=== PATIENT | female | born 1945 | race Caucasian/White ===

== ENCOUNTER 2016-08-28 16:03 | Emergency (ER) | payer MEDICARE, OTHER ==
--- NOTE | 2016-08-28 17:26 | ED.PDOC ---
History of Present Illness - General Chief Complaint: General Stated Complaint: cough, fever, diarrhea Time Seen by Provider: 08/28/16 17:25 Source: patient, RN notes reviewed, Vital Signs reviewed Exam Limitations: no limitations Additional Information: Exposed to sick kids with same symptoms-grandkids - History of Present Illness Timing/Duration: other - 4 days ago Severity: moderate Improving Factors: nothing Worsening Factors: nothing Associated Symptoms: weakness Allergies/Adverse Reactions: Allergies Codeine Allergy (Verified 08/28/16 16:34) Morphine Allergy (Verified 08/28/16 16:34) Penicillins Allergy (Verified 08/28/16 16:34) Pentazocine [From Talwin Compound] Allergy (Verified 08/28/16 16:34) Sulfa Drugs Allergy (Verified 08/28/16 16:34) Vitamin A Allergy (Verified 08/28/16 16:34) Home Medications: Ambulatory Orders Albuterol Inhaler [Ventolin Hfa Inhaler] 1 puff INH PRN PRN 08/22/14 Aspirin [Baby Aspirin] 81 mg PO QD 08/22/14 Nebivolol HCl [Bystolic] 5 mg PO BEDTIME 08/22/14 Tiotropium [place] Monohydrate [Spiriva Handihaler] 18 mcg IN BID 08/22/14 Azithromycin [Zithromax Z-Duarte] 1 ea PO DAILY #1 pack 08/28/16 Carisoprodol [Soma] 350 mg PO TID 08/28/16 Chlorpheniramine Maleate [Chlor-Trimeton] 4 mg PO BID #14 tab 08/28/16 Dextromet/Guaifenesin 600/30 T [Mucinex Dm 600/30MG] 1 tab PO BID #20 tab Fluticasone/Salmeterol 250/50 [Advair Diskus] 1 puff INH BID 08/28/16 predniSONE [Prednisone] 10 mg PO ACHS #10 tab 08/28/16 Review of Systems - Review of Systems Constitutional: States: weakness - from coughing EENTM: States: no symptoms reported Respiratory: States: see HPI, cough Cardiology: States: no symptoms reported Gastrointestinal/Abdominal: States: see HPI, diarrhea Genitourinary: States: no symptoms reported Musculoskeletal: States: no symptoms reported Skin: States: no symptoms reported Neurological: States: no symptoms reported Endocrine: States: no symptoms reported Past Medical History (General) - Patient Medical History Hx Seizures: No Hx Stroke: Yes - cva right leg weakness Hx Dementia: No Hx Asthma: Yes Hx of COPD: Yes Hx Cardiac Disorders: Yes - stent Hx Congestive Heart Failure: No Hx Pacemaker: No Hx Hypertension: Yes Hx Thyroid Disease: No Hx Diabetes: No Hx Gastroesophageal Reflux: No Hx Renal Disease: No Hx Cancer: Yes - right hip, skin cancer Hx of HIV: No Hx Hepatitis C: No Hx MRSA: No Surgical History: appendectomy, other - hysterectomy,neck back shoulder,egd, colonoscopy - Vaccination History Hx Tetanus, Diphtheria Vaccination: No Hx Influenza Vaccination: Yes Hx Pneumococcal Vaccination: Yes - Social History Hx Tobacco Use: Yes Hx Chewing Tobacco Use: No Hx Alcohol Use: No Hx Substance Use: No Hx Substance Use Treatment: No Hx Depression: No Hx Physical Abuse: No Hx Emotional Abuse: No Hx Suspected Abuse: No - Activities of Daily Living Patient Lives Alone: - lives with daughter - Female History Patient is a Female of Child Bearing Age (10 -59 yrs old): No Patient : No Family Medical History - Family History Mother Family History: No Known Living Status: Hx Family Stroke: Yes Hx Cardiac Disease: Yes Hx Family Diabetes: Yes Hx Family Cancer: Yes - brain Physical Exam - Physical Exam General Appearance: Alert, Anxious, No apparent distress Eye Exam: bilateral normal Ears, Nose, Throat: hearing grossly normal, normal ENT inspection, normal pharynx Neck: non-tender, full range of motion, supple, normal inspection Respiratory: chest non-tender, no respiratory distress, no accessory muscle use , rhonchi Cardiovascular/Chest: normal peripheral pulses, regular rate, rhythm, no edema, no gallop, no JVD, no murmur Peripheral Pulses: radial,right: 2+, radial,left: 2+ Gastrointestinal/Abdominal: non tender, soft, no organomegaly, no pulsatile mass Back Exam: normal inspection, no CVA tenderness, no vertebral tenderness Extremity: normal range of motion, non-tender Neurologic: no motor/sensory deficits, alert Skin Exam: normal color, warm/dry Lymphatic: no adenopathy Progress - Results/Orders Results/Orders: 08/28/16 16:47 STREP A SCREEN CULTURE Stat 08/28/16 17:28 SVN/Updraft Therapy .ONCE Laboratory Results WBC 4.7 K/mm3 (4.8-10.8) L 08/28/16 17:55 RBC 4.65 M/mm3 (4.20-5.40) 08/28/16 17:55 Hgb 15.5 gm/dL (12.0-16.0) 08/28/16 17:55 Hct 45.5 % (36.0-47.0) 08/28/16 17:55 MCV 97.9 fl (81.0-99.0) 08/28/16 17:55 MCH 33.2 pg (27.0-31.0) H 08/28/16 17:55 MCHC 34.0 g/dL (33.0-37.0) 08/28/16 17:55 RDW 13.8 % (11.5-14.5) 08/28/16 17:55 Plt Count 198 K/mm3 (130-400) 08/28/16 17:55 MPV 9.0 fl (7.40-10.4) 08/28/16 17:55 Absolute Neuts (auto) 2.70 K/uL (1.8-6.8) 08/28/16 17:55 Absolute Lymphs (auto) 1.20 K/uL (1.0-3.4) 08/28/16 17:55 Absolute Monos (auto) 0.60 K/uL (0.2-0.8) 08/28/16 17:55 Absolute Eos (auto) 0.10 K/uL (0.0-0.4) 08/28/16 17:55 Absolute Basos (auto) 0.00 K/uL (0.0-0.1) 08/28/16 17:55 Neutrophils % 57.7 % (42.0-78.0) 08/28/16 17:55 Lymphocytes % 26.1 % (20.0-50.0) 08/28/16 17:55 Monocytes % 12.6 % (2.0-9.0) H 08/28/16 17:55 Eosinophils % 2.7 % (1.0-5.0) 08/28/16 17:55 Basophils % 0.9 % (0.0-2.0) 08/28/16 17:55 Sodium 137 mmol/L (135-145) 08/28/16 17:55 Potassium 4.7 mmol/L (3.6-5.0) 08/28/16 17:55 Chloride 103 mmol/L (101-111) 08/28/16 17:55 Carbon Dioxide 25 mmol/L (21-31) 08/28/16 17:55 Anion Gap 13.7 (12-18) 08/28/16 17:55 BUN 11 mg/dL (7-18) 08/28/16 17:55 Creatinine 0.59 mg/dL (0.6-1.3) L 08/28/16 17:55 BUN/Creatinine Ratio 18.6 (10-20) 08/28/16 17:55 Random Glucose 94 mg/dL (70-105) 08/28/16 17:55 Serum Osmolality 273.0 mOsm/L (275-295) L 08/28/16 17:55 Calcium 9.1 mg/dL (8.4-10.2) 08/28/16 17:55 Total Bilirubin 0.4 mg/dL (0.2-1.0) 08/28/16 17:55 AST 25 IU/L (10-42) 08/28/16 17:55 ALT 27 IU/L (10-60) 08/28/16 17:55 Alkaline Phosphatase 95 IU/L (42-121) 08/28/16 17:55 Serum Total Protein 7.7 gm/dL (6.4-8.2) 08/28/16 17:55 Albumin 4.1 g/dl (3.2-5.5) 08/28/16 17:55 Globulin 3.6 gm/dL (2.3-3.5) H 08/28/16 17:55 Albumin/Globulin Ratio 1.1 (1.1-1.9) 08/28/16 17:55 Group A Strep Rapid Negative (NEGATIVE) 08/28/16 16:47 - EKG/XRAY/CT XRAY: chest - no acute abnormality noted Departure - Departure Clinical Impression: Asthmatic bronchitis with acute exacerbation, Viral diarrhea Time of Disposition: 18:51 Disposition: Discharge to Home or Self Care Condition: Good Departure Forms: ED Discharge - Pt. Copy, Patient Portal Self Enrollment Instructions: DI for Chronic Bronchitis, Probiotics May Decrease Intensity and Duration of Diarrhea Due to Infection Prescriptions: Chlorpheniramine Maleate [Chlor-Trimeton] 4 mg PO BID #14 tab Dextromet/Guaifenesin 600/30 T [Mucinex Dm 600/30MG] 1 tab PO BID #20 tab predniSONE [Prednisone] 10 mg PO ACHS #10 tab Azithromycin [Zithromax Z-Duarte] 1 ea PO DAILY #1 pack Home Medications: Ambulatory Orders Albuterol Inhaler [Ventolin Hfa Inhaler] 1 puff INH PRN PRN 08/22/14 Aspirin [Baby Aspirin] 81 mg PO QD 08/22/14 Nebivolol HCl [Bystolic] 5 mg PO BEDTIME 08/22/14 Tiotropium [place] Monohydrate [Spiriva Handihaler] 18 mcg IN BID 08/22/14 Azithromycin [Zithromax Z-Duarte] 1 ea PO DAILY #1 pack 08/28/16 Carisoprodol [Soma] 350 mg PO TID 08/28/16 Chlorpheniramine Maleate [Chlor-Trimeton] 4 mg PO BID #14 tab 08/28/16 Dextromet/Guaifenesin 600/30 T [Mucinex Dm 600/30MG] 1 tab PO BID #20 tab Fluticasone/Salmeterol 250/50 [Advair Diskus] 1 puff INH BID 08/28/16 predniSONE [Prednisone] 10 mg PO ACHS #10 tab 08/28/16 Additional Instructions: AVOID GREASY,SPICY,DAIRY FOODS UNTIL DIARRHEA BETTER,RETURN TO EMERGENCY ROOM NEEDED,CONTINUE WITH CURRENT MEDICATIONS
[2016-08-28] MEDS ORDERED: IPRATROPIUM/ALBUTEROL 3 ML VIAL NEB ONE (17:28)
[2016-08-28] MEDS ORDERED: LACTATED RINGERS 1,000 ML IVS ONE (17:29)
[2016-08-28] MEDS ORDERED: methylPREDNISolone SODIUM SUC 125 MG/2 ML VIAL IV ONE (17:29)
--- NOTE | 2016-08-28 17:34 | RAD ---
EXAM DESCRIPTION: XR CHEST 2 VIEWS CLINICAL HISTORY: SOB cough chest congestion COMPARISON: 22 August 2014. TECHNIQUE: PA/lateral FINDINGS: Orthopedic anchors are observed in the right shoulder. The lungs are free of acute infiltrate. A calcified granuloma is observed at the left lung base. The heart is within the range of normal. No pleural fluid is seen. IMPRESSION: I see no acute cardiopulmonary pathology. Electronically signed by: Vitaly Wiley MD 08/28/2016 17:31
[2016-08-28 19:10] VITALS: BP 148/84; TEMP 98.8; O2SAT 95
== END 2016-08-28 19:10 | disposition home or self-care (01) ==
LOC: ER 16:03
DX: J45.901 Unspecified asthma with (acute) exacerbation (principal); A08.4 Viral intestinal infection, unspecified; Z79.82 Long term (current) use of aspirin; Z79.899 Other long term (current) drug therapy; J44.9 Chronic obstructive pulmonary disease, unspecified; I10 Essential (primary) hypertension; Z98.61 Coronary angioplasty status; I69.951 Hemiplegia and hemiparesis following unspecified cerebrovascular disease affecting right dominant side
CPT/HCPCS: 36415; 71020; 80053; 85025; 87070; 87804; 87880; 94640; J2930; J7120; J7620

== ENCOUNTER 2016-11-21 11:27 | Emergency (ER) | payer MEDICARE ==
[2016-11-21 11:45] VITALS: TEMP 97.4
[2016-11-21] MEDS ORDERED: IPRATROPIUM/ALBUTEROL 3 ML VIAL NEB ONE (11:45)
[2016-11-21] MEDS ORDERED: methylPREDNISolone SODIUM SUC 125 MG/2 ML VIAL IM ONE (11:45)
--- NOTE | 2016-11-21 11:50 | ED.PDOC ---
History of Present Illness - General Chief Complaint: Respiratory Problem Stated Complaint: cough,shortness of breath Time Seen by Provider: 11/21/16 11:39 Source: patient, RN notes reviewed, Vital Signs reviewed Exam Limitations: no limitations - History of Present Illness Comments: Patient comes in with a several day history of cough and SOB. Similar to prior episodes. Says she needs a breathing treatment and steroids. + chills. + chest pain. Diarrhea started this morning. Timing/Duration: week Cough Quality/Degree: moderate, dry cough Possible Cause: frequent episodes Improving Factors: nothing Worsening Factors: nothing Associated Symptoms: chest pain/soreness, cough, fever/chills, headache, shortness of breath, wheezing Allergies/Adverse Reactions: Allergies Codeine Allergy (Verified 08/28/16 16:34) Morphine Allergy (Verified 08/28/16 16:34) Penicillins Allergy (Verified 08/28/16 16:34) Pentazocine [From Talwin Compound] Allergy (Verified 08/28/16 16:34) Sulfa Drugs Allergy (Verified 08/28/16 16:34) Vitamin A Allergy (Verified 08/28/16 16:34) Home Medications: Ambulatory Orders Albuterol Inhaler [Ventolin Hfa Inhaler] 1 puff INH PRN PRN 08/22/14 Aspirin [Baby Aspirin] 325 mg PO QD 08/22/14 Nebivolol HCl [Bystolic] 5 mg PO BEDTIME 08/22/14 Tiotropium [place] Monohydrate [Spiriva Handihaler] 18 mcg IN BID 08/22/14 Carisoprodol [Soma] 350 mg PO TID 08/28/16 Fluticasone/Salmeterol 250/50 [Advair Diskus] 1 puff INH BID 08/28/16 Albuterol Inhaler [Ventolin Hfa Inhaler] 2 puff INH Q4HR PRN #1 inh 11/21/16 Azithromycin [Zithromax Z-Duarte] 1 ea PO DAILY #1 pack 11/21/16 Prednisone 10 mg PO DAILY #30 tbls 11/21/16 Review of Systems - Review of Systems Constitutional: States: chills, malaise. Denies: fever EENTM: States: no symptoms reported Respiratory: States: cough, short of breath, wheezing. Denies: orthopnea, stridor Cardiology: States: no symptoms reported Gastrointestinal/Abdominal: States: diarrhea. Denies: abdominal pain, nausea, vomiting Musculoskeletal: States: no symptoms reported Skin: States: no symptoms reported Neurological: States: headache Past Medical History (General) - Patient Medical History Hx Seizures: No Hx Stroke: Yes - cva right leg weakness Hx Dementia: No Hx Asthma: Yes Hx of COPD: Yes Hx Cardiac Disorders: Yes - stent Hx Congestive Heart Failure: No Hx Pacemaker: No Hx Hypertension: Yes Hx Thyroid Disease: No Hx Diabetes: No Hx Gastroesophageal Reflux: No Hx Renal Disease: No Hx Cancer: Yes - right hip, skin cancer Hx of HIV: No Hx Hepatitis C: No Hx MRSA: No Surgical History: Hysterectomy - Vaccination History Hx Tetanus, Diphtheria Vaccination: No Hx Influenza Vaccination: Yes Hx Pneumococcal Vaccination: Yes - Social History Hx Tobacco Use: Yes Hx Chewing Tobacco Use: No Hx Alcohol Use: No Hx Substance Use: No Hx Substance Use Treatment: No Hx Depression: No Hx Physical Abuse: No Hx Emotional Abuse: No Hx Suspected Abuse: No - Female History Patient : No Family Medical History - Family History Mother Family History: No Known Living Status: Hx Family Stroke: Yes Hx Cardiac Disease: Yes Hx Family Diabetes: Yes Hx Family Cancer: Yes - brain Physical Exam - Physical Exam General Appearance: Alert, Comfortable, No apparent distress, Well Developed, Well Groomed, Well Hydrated, Well Nourished ENT Exam: normal ENT inspection, pharynx normal Neck: non-tender, full range of motion, supple, normal inspection, trachea midline Respiratory: wheezing, expiration, inspiration Cardiovascular/Chest: regular rate, rhythm, no gallop, no JVD, no murmur Gastrointestinal/Abdominal: normal bowel sounds, non tender, soft, no organomegaly, no pulsatile mass Neurologic: no motor/sensory deficits, alert, normal mood/affect, oriented x 3 Skin Exam: normal color, warm/dry Progress - Progress Progress: 11/21/16 12:30 Patient is feeling better after neb treatment but on exam she still is wheezing throughout R>L 11/21/16 12:30 Will give another Neb treatment. 11/21/16 13:02 Improved air movement after 2nd neb treatment with Albuterol. No wheezing. Will d/c home with steroids, Albuterol inhaler and Z-pack - EKG/XRAY/CT XRAY: chest - No acute process Departure - Departure Clinical Impression: Asthmatic bronchitis with acute exacerbation Time of Disposition: 13:02 Disposition: Discharge to Home or Self Care Condition: Good Departure Forms: ED Discharge - Pt. Copy, Patient Portal Self Enrollment Instructions: DI for Asthma -- Adult, DI for Acute Bronchitis Diet: resume usual diet Activity: increase activity as tolerated Prescriptions: Albuterol Inhaler [Ventolin Hfa Inhaler] 2 puff INH Q4HR PRN #1 inh PRN Reason: Shortness Of Breath Prednisone 10 mg PO DAILY #30 tbls Azithromycin [Zithromax Z-Duarte] 1 ea PO DAILY #1 pack Home Medications: Ambulatory Orders Albuterol Inhaler [Ventolin Hfa Inhaler] 1 puff INH PRN PRN 08/22/14 Aspirin [Baby Aspirin] 325 mg PO QD 08/22/14 Nebivolol HCl [Bystolic] 5 mg PO BEDTIME 08/22/14 Tiotropium [place] Monohydrate [Spiriva Handihaler] 18 mcg IN BID 08/22/14 Carisoprodol [Soma] 350 mg PO TID 08/28/16 Fluticasone/Salmeterol 250/50 [Advair Diskus] 1 puff INH BID 08/28/16 Albuterol Inhaler [Ventolin Hfa Inhaler] 2 puff INH Q4HR PRN #1 inh 11/21/16 Azithromycin [Zithromax Z-Duarte] 1 ea PO DAILY #1 pack 11/21/16 Prednisone 10 mg PO DAILY #30 tbls 11/21/16 Additional Instructions: Follow up with your doctor in 2-3 days
--- NOTE | 2016-11-21 12:27 | RAD ---
EXAM DESCRIPTION: Chest,2 Views CLINICAL HISTORY: cough, chills, SOB COMPARISON: August 28, 2016 FINDINGS: Two-view chest x-ray shows cardiomediastinal silhouette and pulmonary vasculature to be within normal limits. The lungs are normally aerated and clear. There is a 6 mm calcified pulmonary nodule in the left lower lobe. Stable from previous. Costophrenic angles are sharp. Postsurgical changes to the right shoulder are seen. Mild spondylitic changes of the spine are noted. IMPRESSION: No radiographic evidence of acute cardiopulmonary disease. Electronically signed by: Hermann Bill MD 11/21/2016 12:25 PM CDT
[2016-11-21 12:31] VITALS: BP 153/77
[2016-11-21] MEDS ORDERED: ALBUTEROL SULFATE 2.5 MG/3 ML VIAL NEB ONE (12:31)
[2016-11-21 12:40] VITALS: O2SAT 96
== END 2016-11-21 13:15 | disposition home or self-care (01) ==
LOC: ER 11:27
DX: J45.901 Unspecified asthma with (acute) exacerbation (principal); I69.951 Hemiplegia and hemiparesis following unspecified cerebrovascular disease affecting right dominant side; I10 Essential (primary) hypertension; J44.9 Chronic obstructive pulmonary disease, unspecified; Z98.61 Coronary angioplasty status; Z79.82 Long term (current) use of aspirin; Z79.899 Other long term (current) drug therapy; Z88.6 Allergy status to analgesic agent; Z88.0 Allergy status to penicillin; Z88.2 Allergy status to sulfonamides; Z87.891 Personal history of nicotine dependence

== ENCOUNTER 2017-07-28 13:04 | Emergency (ER) | payer MEDICARE ==
--- NOTE | 2017-07-28 13:35 | ED.PDOC ---
History of Present Illness - General Chief Complaint: Chest Pain/OH Stated Complaint: chest pain Time Seen by Provider: 07/28/17 13:12 Source: patient Exam Limitations: no limitations - History of Present Illness Initial Comments: PT PRESENTS TO THE ED WITH COMPLAINT OF CHEST PAIN, SOB, AND NAUSEA SINCE THIS MORNING AT 8AM. PT HAS HISTORY OF CAD WITH STENT. PT REPORTS TAKING ASA AND 2NTG AT HOME WITH ONLY PARTIAL RELIEF. PT HAS HAD SYMPTOMS OF COUGH AND CONGESTION X 4 DAYS. PT RATES PAIN AT 5/10 CURRENTLY BUT STATES THAT IT WAS 12/ 10 AT ONSET. Timing/Duration: 4-6 hours Severity: severe Location: substernal Activities at Onset: none Prior Chest Pain/Cardiac Workup: angina, cardiac cath, heart attack Improving Factors: medication Worsening Factors: nothing Nitro Today/Relief: 0.4 mg x 2 Aspirin Treatment Today: 81 mg x 2 Associated Symptoms: cough, nausea/vomiting, shortness of breath Allergies/Adverse Reactions: Allergies Codeine Allergy (Verified 07/28/17 13:21) Morphine Allergy (Verified 07/28/17 13:21) Penicillins Allergy (Verified 07/28/17 13:21) Pentazocine [From [place]win Compound] Allergy (Verified 07/28/17 13:21) Sulfa Drugs Allergy (Verified 07/28/17 13:21) Vitamin A Allergy (Verified 07/28/17 13:21) Home Medications: Ambulatory Orders Albuterol Inhaler [Ventolin Hfa Inhaler] 1 puff INH PRN PRN 08/22/14 Nebivolol HCl [Bystolic] 5 mg PO BEDTIME 08/22/14 Tiotropium [place] Monohydrate [Spiriva Handihaler] 18 mcg IN BID 08/22/14 Carisoprodol [Soma] 350 mg PO QID 08/28/16 Fluticasone/Salmeterol 250/50 [Advair Diskus] 1 puff INH BID 08/28/16 Albuterol Inhaler [Ventolin Hfa Inhaler] 2 puff INH Q4HR PRN #1 inh 11/21/16 Aspirin [(None)] 325 mg PO DAILY 07/28/17 Review of Systems - Review of Systems Constitutional: Denies: chills, fever EENTM: States: nose congestion. Denies: throat pain Respiratory: States: cough, short of breath Cardiology: States: chest pain. Denies: palpitations, syncope Gastrointestinal/Abdominal: States: nausea. Denies: abdominal pain, diarrhea, vomiting Genitourinary: Denies: dysuria, frequency Musculoskeletal: Denies: joint pain, joint swelling Skin: Denies: dryness, lesions Neurological: Denies: headache, numbness Endocrine: States: no symptoms reported Hematologic/Lymphatic: States: no symptoms reported Past Medical History (General) - Patient Medical History Hx Seizures: No Hx Stroke: Yes - cva right leg weakness Hx Dementia: No Hx Asthma: Yes Hx of COPD: Yes Hx Cardiac Disorders: Yes - stent Hx Congestive Heart Failure: No Hx Pacemaker: No Hx Hypertension: Yes Hx Thyroid Disease: No Hx Diabetes: No Hx Gastroesophageal Reflux: No Hx Renal Disease: No Hx Cancer: Yes - right hip, skin cancer Hx of HIV: No Hx Hepatitis C: No Hx MRSA: No Surgical History: appendectomy, Hysterectomy, other - Vaccination History Hx Tetanus, Diphtheria Vaccination: No Hx Influenza Vaccination: Yes Hx Pneumococcal Vaccination: Yes - Social History Hx Tobacco Use: Yes Hx Chewing Tobacco Use: No Hx Alcohol Use: No Hx Substance Use: No Hx Substance Use Treatment: No Hx Depression: No Hx Physical Abuse: No Hx Emotional Abuse: No Hx Suspected Abuse: No - Female History Patient is a Female of Child Bearing Age (10 -59 yrs old): No Patient : No Family Medical History - Family History Mother Family History: No Known Living Status: Hx Family Stroke: Yes Hx Cardiac Disease: Yes Hx Family Diabetes: Yes Hx Family Cancer: Yes - brain Physical Exam - Physical Exam General Appearance: Alert, Comfortable, No apparent distress, Well Developed, Well Groomed, Well Hydrated Eyes, Ears, Nose, Throat Exam: normal ENT inspection Neck: supple, normal inspection Respiratory: no respiratory distress, no accessory muscle use, wheezing Cardiovascular/Chest: regular rate, rhythm, no murmur Gastrointestinal/Abdominal: non tender, soft Extremity: non-tender, normal inspection, no pedal edema Neurologic: alert, normal mood/affect, oriented x 3 Skin Exam: normal color, warm/dry Progress - Progress Progress: 07/28/17 14:10 PT REPORTS ONLY MINIMAL RELIEF AFTER 1SL NTG. 07/28/17 14:34 PT REQUESTING DILAUDID FOR PAIN. LABS AND DIAGNOSTICS DISCUSSED WITH PATIENT. PT AGREES WITH PLAN TO TRANSFER TO [place] FOR CARDIOLOGY CONSULT. IV NTG AND IV HEPARIN ORDERED. - Results/Orders Results/Orders: 07/28/17 13:31 IV Care:Saline Lock per Protoc QSHIFT Telemetry .ONCE Sodium Chloride 0.9% (Flush) [Saline Flush Syringe] 10 ml IV PRN PRN EKG Stat Pulse Ox Stat 07/28/17 13:32 EKG Assessment ONCE Pulse Oximetry Assessment DAILY 07/28/17 13:37 URINE CULTURE W/COLONY COUNT Stat 07/28/17 14:45 Heparin Premix [Heparin/D5w 25,000U/500ML] 25,000 units Premix Bag 1 bag IVS PRN 07/28/17 15:00 Nitroglycerin/D5w IV 50,000 mcg Premix Bottle 1 bottle IVS PRN Laboratory Results - last 24 hr 07/28/17 07/28/17 13:37 13:37 WBC 7.7 RBC 4.66 Hgb 15.5 Hct 45.2 MCV 97.2 MCH 33.2 H MCHC 34.2 RDW 13.9 Plt Count 229 MPV 8.6 Absolute Neuts (auto) 5.30 Absolute Lymphs (auto) 1.80 Absolute Monos (auto) 0.50 Absolute Eos (auto) 0.10 Absolute Basos (auto) 0.10 Neutrophils % 68.7 Lymphocytes % 23.3 Monocytes % 6.3 Eosinophils % 0.8 L Basophils % 0.9 PT 11.5 INR 1.020 PTT (SP) 31.4 Sodium 137 Potassium 4.1 Chloride 102 Carbon Dioxide 28 Anion Gap 11.1 L BUN 11 Creatinine 0.95 BUN/Creatinine Ratio 11.6 Random Glucose 121 H Serum Osmolality 274.5 L Calcium 9.0 Magnesium 2.0 Total Bilirubin 0.3 Direct Bilirubin < 0.1 Indirect Bilirubin 0.2 AST 26 ALT 31 Alkaline Phosphatase 82 Creatine Kinase 129 CK-MB (CK-2) 5.4 H* CK-MB (CK-2) % 4.19 Troponin I 0.28 H* B-Natriuretic Peptide 9.6 Serum Total Protein 7.5 Albumin 3.9 Urine Color Yellow Urine Appearance Clear Urine pH 7.0 Ur Specific [place] 1.015 Urine Protein Negative Urine Glucose (UA) Negative Urine Ketones Negative Urine Blood Trace-lysed H Urine Nitrite Negative Urine Bilirubin Negative Urine Urobilinogen 0.2 Ur Leukocyte Esterase Small H Urine RBC 1-3 Urine WBC 5-10 H Ur Epithelial Cells 0-1 Urine Bacteria Rare - EKG/XRAY/CT EKG: Sinus - @84BPM, NL INTERVALS, NL AXIS, ST depression - MINIMAL IN INFERIOR LEADS, NO OLD EKG FOR COMPARISON XRAY: chest - NO ACUTE FINDINGS - Consult/PCP Time Called: 14:45 Consult/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 Copy, Patient Portal Self Enrollment Instructions: DI for Chest Pain Home Medications: Ambulatory Orders Albuterol Inhaler [Ventolin Hfa Inhaler] 1 puff INH PRN PRN 08/22/14 Nebivolol HCl [Bystolic] 5 mg PO BEDTIME 08/22/14 Tiotropium [place] Monohydrate [Spiriva Handihaler] 18 mcg IN BID 08/22/14 Carisoprodol [Soma] 350 mg PO QID 08/28/16 Fluticasone/Salmeterol 250/50 [Advair Diskus] 1 puff INH BID 08/28/16 Albuterol Inhaler [Ventolin Hfa Inhaler] 2 puff INH Q4HR PRN #1 inh 11/21/16 Aspirin [(None)] 325 mg PO DAILY 07/28/17 Critical Care Note - Critical Care Note Total Time (mins): 43 Comments: CRITICAL EVENT: CHEST PAIN, H/O CAD CRITICAL FINDING: TROP, 0.28 CRITICAL ACTION: INITIATION OF IV NTG DRIP, IV HEPARIN, EMERGENT CARDIOLOGY CONSULT, CONSULTATION FOR TRANSFER. Transfer to Outside Facility - Transfer Information Accepting Provider:: DR. FERNANDEZ Accepting Facility: [facility] Reason for Transfer: required specialist not available - HAIR OR BEAUTY SALON ASSISTANT
[2017-07-28] MEDS: NITROGLYCERIN 0.4 MG 25 EA TAB SL ONE (13:42)
[2017-07-28] MEDS: SODIUM CHLORIDE 0.9% (FLUSH) 10 ML SYG IV PRN (13:42)
[2017-07-28] MEDS: methylPREDNISolone SODIUM SUC 125 MG/2 ML VIAL IV ONE (13:42)
[2017-07-28] MEDS: ONDANSETRON INJ 4 MG/2 ML VIAL IV ONE (13:42)
[2017-07-28] MEDS: IPRATROPIUM/ALBUTEROL 3 ML VIAL NEB ONE (13:43)
--- NOTE | 2017-07-28 14:13 | RAD ---
EXAM DESCRIPTION: Chest,1 View CLINICAL HISTORY: 72 years Female, CHEST PAIN, SOB COMPARISON: November 21, 2016 TECHNIQUE: AP portable chest. FINDINGS: Lungs are clear. No consolidation. Heart normal size. IMPRESSION: Normal. Electronically signed by: Hilton Augustin MD 07/28/2017 2:12 PM [facility]
[2017-07-28] MEDS ORDERED: HEPARIN PREMIX 500 ML ONE (14:49)
[2017-07-28] MEDS: HYDROmorphone HCL INJ 2 MG/ML VIAL IV ONE (14:56)
[2017-07-28] MEDS: HEPARIN SODIUM (PORCINE) 5,000 U/ML VIAL IV ONE (15:00)
[2017-07-28 15:09] VITALS: BP 152/92; O2SAT 96
[2017-07-28] MEDS ORDERED: NITROGLYCERIN/D5W IV 250 ML IVS ONE (15:10)
[2017-07-28 15:51] VITALS: TEMP 98.5
[2017-07-29] MEDS: NITROGLYCERIN/D5W IV 50,000 MCG in PREMIX BOTTLE 1 BOTTLE IVS SCH (10:04)
[2017-07-29] MEDS: HEPARIN PREMIX 25,000 UNITS in PREMIX BAG 1 BAG IVS SCH (14:25)
== END 2017-07-28 15:30 | disposition short-term general hospital (02) ==
LOC: ER 13:04
DX: I21.4 Non-ST elevation (NSTEMI) myocardial infarction (principal); J44.9 Chronic obstructive pulmonary disease, unspecified; I10 Essential (primary) hypertension; I25.10 Atherosclerotic heart disease of native coronary artery without angina pectoris; I69.941 Monoplegia of lower limb following unspecified cerebrovascular disease affecting right dominant side; Z98.61 Coronary angioplasty status; Z79.82 Long term (current) use of aspirin; Z79.899 Other long term (current) drug therapy; Z88.2 Allergy status to sulfonamides; Z88.0 Allergy status to penicillin; Z87.891 Personal history of nicotine dependence
CPT/HCPCS: 36415; 71010; 80048; 80076; 81001; 82550; 82553; 83880; 84484; 85025; 85610; 85730; 87086; 93005; 94640; 94760; J1170; J1644; J2405; J2930; J7620

== ENCOUNTER 2020-03-01 15:37 | Emergency (ER) | payer MEDICARE ==
[2020-03-01 15:57] VITALS: TEMP 97.1
[2020-03-01] MEDS ORDERED: KETOROLAC TROMETHAMINE INJ 30 MG/ML VIAL ONE (16:12)
[2020-03-01] MEDS: predniSONE 20 MG TAB PO ONE (16:13)
[2020-03-01] MEDS: KETOROLAC TROMETHAMINE INJ 30 MG/ML VIAL IM ONE (16:15)
[2020-03-01] MEDS: ACETAMINOPHEN-CAFF-BUTALBITAL 1 EA TAB PO ONE (16:17)
[2020-03-01] MEDS ORDERED: ACETAMINOPHEN-CAFF-BUTALBITAL 1 EA TAB ONE (16:17)
[2020-03-01] MEDS: PREGABALIN 75 MG CAP PO ONE (17:23)
[2020-03-01] MEDS: MEPERIDINE HCL 50 MG/ML VIAL IM ONE (18:27)
--- NOTE | 2020-03-01 18:53 | ED.PDOC ---
History of Present Illness - General Chief Complaint: Neck Injury/Pain Stated Complaint: neck pain Time Seen by Provider: 03/01/20 15:50 Source: patient Exam Limitations: no limitations - History of Present Illness Initial Comments: The patient is a 74-year-old female presented emergency room secondary to neck spasm. 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 The patient normally takes Soma but her Soma is been adequate. No altered mental status. No new neurological changes. She does have radiating pain down her arms and some to her legs. No incontinence. No new loss of sensation. No trauma. The patient does have numerous drug allergies. Timing/Duration: 1 week Severity: severe Improving Factors: immobilization Worsening Factors: movement Associated Symptoms: denies symptoms Allergies/Adverse Reactions: Allergies Codeine Allergy (Verified 03/01/20 15:57) Morphine Allergy (Verified 03/01/20 15:57) Penicillins Allergy (Verified 03/01/20 15:57) Pentazocine [From Talwin Compound] Allergy (Verified 03/01/20 15:57) Sulfa Drugs Allergy (Verified 03/01/20 15:57) Vitamin A Allergy (Verified 03/01/20 15:57) Home Medications: Ambulatory Orders Albuterol Inhaler [Ventolin Hfa Inhaler] 1 puff INH PRN PRN 08/22/14 Nebivolol HCl [Bystolic] 5 mg PO BEDTIME 08/22/14 Tiotropium [place] Monohydrate [Spiriva Handihaler] 18 mcg IN BID 08/22/14 Carisoprodol [Soma] 350 mg PO QID 08/28/16 Fluticasone/Salmeterol 250/50 [Advair Diskus] 1 puff INH BID 08/28/16 Albuterol Inhaler [Ventolin Hfa Inhaler] 2 puff INH Q4HR PRN #1 inh 11/21/16 Aspirin [(None)] 325 mg PO DAILY 07/28/17 Llmpvihpunbqd-Qdvq-Iivrbhqysd [Fioricet] 1 ea PO Q8H PRN #21 tab 03/01/20 Pregabalin [Lyrica] 75 mg PO DAILY #14 cap 03/01/20 predniSONE [Prednisone] 20 mg PO DAILY #3 tab 03/01/20 Review of Systems - Review of Systems Constitutional: States: no symptoms reported EENTM: States: no symptoms reported Respiratory: States: no symptoms reported Cardiology: States: no symptoms reported Gastrointestinal/Abdominal: States: no symptoms reported Genitourinary: States: no symptoms reported Musculoskeletal: States: see HPI Skin: States: no symptoms reported Neurological: States: see HPI Endocrine: States: no symptoms reported All other Systems: No Change from Baseline Past Medical History (General) - Patient Medical History Hx Seizures: No Hx Stroke: Yes - cva right leg weakness Hx Dementia: No Hx Asthma: Yes Hx of COPD: Yes Hx Cardiac Disorders: Yes - stent Hx Congestive Heart Failure: No Hx Pacemaker: No Hx Hypertension: Yes Hx Thyroid Disease: No Hx Diabetes: No Hx Gastroesophageal Reflux: No Hx Renal Disease: No Hx Cancer: Yes - right hip, skin cancer Hx of HIV: No Hx Hepatitis C: No Hx MRSA: No Surgical History: cholecystectomy, Hysterectomy - Vaccination History Hx Tetanus, Diphtheria Vaccination: No Hx Influenza Vaccination: Yes Hx Pneumococcal Vaccination: Yes Immunizations Up to Date: No - Social History Hx Tobacco Use: Yes Hx Chewing Tobacco Use: No Hx Alcohol Use: No Hx Substance Use: No Hx Substance Use Treatment: No Hx Depression: No Hx Physical Abuse: No Hx Emotional Abuse: No Hx Suspected Abuse: No - Female History Patient is a Female of Child Bearing Age (10 -59 yrs old): No Patient : No Family Medical History - Family History Mother Family History: No Known Living Status: Hx Family Stroke: Yes Hx Cardiac Disease: Yes Hx Family Diabetes: Yes Hx Family Cancer: Yes - brain Physical Exam - Physical Exam General Appearance: Alert, Obvious distress Eye Exam: bilateral normal Ears, Nose, Throat: hearing grossly normal, normal pharynx Neck: tender lateral Respiratory: lungs clear, normal breath sounds, no respiratory distress, no accessory muscle use Cardiovascular/Chest: normal peripheral pulses, no edema, other - Regular rate Peripheral Pulses: radial,right: 2+, radial,left: 2+ Rectal Exam: deferred Extremity: non-tender, no pedal edema, normal capillary refill 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 The patient is apparently scheduled to have surgery on the . The patient received a large dose of Toradol, a dose of Demerol, a dose of Lyrica, prednisone and 2 doses of Fioricet. The patient is doing better at this point. She has not pain-free however and will likely not be until after her surgery. The patient will be written for 3 more days of oral prednisone as well as 2 weeks of oral Lyrica. She needs to take the prednisone in the morning and the Lyrica at night. Additionally she will be written for short prescription for Fioricet for as needed pain relief. ER warnings are given. Follow-up with primary care doctor in the coming week. 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 Copy, Patient Portal Self Enrollment Diet: regular diet Activity: increase activity as tolerated Referrals: BREANN QUINTANA NP [Primary Care Provider] - 1-2 Weeks Prescriptions: Hfcoxmpbzlwfz-Hhyg-Wrcdylgbvv [Fioricet] 1 ea PO Q8H PRN #21 tab PRN Reason: Pain predniSONE [Prednisone] 20 mg PO DAILY #3 tab Pregabalin [Lyrica] 75 mg PO DAILY #14 cap Home Medications: Ambulatory Orders Albuterol Inhaler [Ventolin Hfa Inhaler] 1 puff INH PRN PRN 08/22/14 Nebivolol HCl [Bystolic] 5 mg PO BEDTIME 08/22/14 Tiotropium Laie Monohydrate [Spiriva Handihaler] 18 mcg IN BID 08/22/14 Carisoprodol [Soma] 350 mg PO QID 08/28/16 Fluticasone/Salmeterol 250/50 [Advair Diskus] 1 puff INH BID 08/28/16 Albuterol Inhaler [Ventolin Hfa Inhaler] 2 puff INH Q4HR PRN #1 inh 11/21/16 Aspirin [(None)] 325 mg PO DAILY 07/28/17 Hsnpefhjmscwo-Twkh-Ophrsnublf [Fioricet] 1 ea PO Q8H PRN #21 tab 03/01/20 Pregabalin [Lyrica] 75 mg PO DAILY #14 cap 03/01/20 predniSONE [Prednisone] 20 mg PO DAILY #3 tab 03/01/20 Additional Instructions: The patient is a 74-year-old female with significant cervical radiculopathy due to long-term cervical spine degenerative disease. The patient is apparently scheduled to have surgery on the . The patient received a large dose of Toradol, a dose of Demerol, a dose of Lyrica, prednisone and 2 doses of Fioricet. The patient is doing better at this point. She has not pain-free however and will likely not be until after her surgery. The patient will be written for 3 more days of oral prednisone as well as 2 weeks of oral Lyrica. She needs to take the prednisone in the morning and the Lyrica at night. Additionally she will be written for short prescription for Fioricet for as needed pain relief. ER warnings are given. Follow-up with primary care doctor in the coming week.
[2020-03-01 19:05] VITALS: BP 168/91; O2SAT 94
== END 2020-03-01 19:04 | disposition home or self-care (01) ==
LOC: ER 15:37
DX: M54.12 Radiculopathy, cervical region (principal); J44.9 Chronic obstructive pulmonary disease, unspecified; F17.200 Nicotine dependence, unspecified, uncomplicated; Z79.82 Long term (current) use of aspirin; Z95.5 Presence of coronary angioplasty implant and graft; Z86.73 Personal history of transient ischemic attack (TIA), and cerebral infarction without residual deficits
CPT/HCPCS: J1885; J2175; J7512

== ENCOUNTER 2020-03-01 23:37 | Emergency (ER) | payer MEDICARE ==
[2020-03-01 23:53] VITALS: TEMP 97
[2020-03-02] MEDS: fentaNYL PATCH 25 MCG/HR 1 EA PATCH TD SCH (00:12)
--- NOTE | 2020-03-02 00:12 | ED.PDOC ---
History of Present Illness - General Stated Complaint: my back pain is causing me to be short of breath Time Seen by Provider: 03/01/20 23:49 Source: patient Exam Limitations: no limitations - History of Present Illness Initial Comments: The patient is a 74-year-old female presenting back to the emergency room secondary to persistent neck pain. The Demerol that she was given earlier has of course worn off and the pain has come back which is unsurprising. No new neurological changes. No fever. No incontinence. No altered mental status. Blood pressure is elevated. The Demerol, and combination with the Lyrica and Fioricet did not cause any drowsiness. The patient has apparently actually been on Dilaudid and fentanyl in the past according to her. Timing/Duration: 24 hours Severity: severe Improving Factors: medication Worsening Factors: movement Associated Symptoms: denies symptoms Allergies/Adverse Reactions: Allergies Codeine Allergy (Verified 03/01/20 15:57) Morphine Allergy (Verified 03/01/20 15:57) Penicillins Allergy (Verified 03/01/20 15:57) Pentazocine [From Talwin Compound] Allergy (Verified 03/01/20 15:57) Sulfa Drugs Allergy (Verified 03/01/20 15:57) Vitamin A Allergy (Verified 03/01/20 15:57) Home Medications: Ambulatory Orders Albuterol Inhaler [Ventolin Hfa Inhaler] 1 puff INH PRN PRN 08/22/14 Nebivolol HCl [Bystolic] 5 mg PO BEDTIME 08/22/14 Tiotropium [place] Monohydrate [Spiriva Handihaler] 18 mcg IN BID 08/22/14 Carisoprodol [Soma] 350 mg PO QID 08/28/16 Fluticasone/Salmeterol 250/50 [Advair Diskus] 1 puff INH BID 08/28/16 Albuterol Inhaler [Ventolin Hfa Inhaler] 2 puff INH Q4HR PRN #1 inh 11/21/16 Aspirin [(None)] 325 mg PO DAILY 07/28/17 Cnxyvpobatiby-Gmsm-Klrzwthvfq [Fioricet] 1 ea PO Q8H PRN #21 tab 03/01/20 Pregabalin [Lyrica] 75 mg PO DAILY #14 cap 03/01/20 predniSONE [Prednisone] 20 mg PO DAILY #3 tab 03/01/20 Review of Systems - Review of Systems Constitutional: States: no symptoms reported EENTM: States: no symptoms reported Respiratory: States: no symptoms reported Cardiology: States: no symptoms reported Gastrointestinal/Abdominal: States: no symptoms reported Genitourinary: States: no symptoms reported Musculoskeletal: States: see HPI Skin: States: no symptoms reported Neurological: States: see HPI Endocrine: States: no symptoms reported All other Systems: No Change from Baseline Past Medical History (General) - Patient Medical History Hx Seizures: No Hx Stroke: Yes - cva right leg weakness Hx Dementia: No Hx Asthma: Yes Hx of COPD: Yes Hx Cardiac Disorders: Yes - stent Hx Congestive Heart Failure: No Hx Pacemaker: No Hx Hypertension: Yes Hx Thyroid Disease: No Hx Diabetes: No Hx Gastroesophageal Reflux: No Hx Renal Disease: No Hx Cancer: Yes - right hip, skin cancer Hx of HIV: No Hx Hepatitis C: No Hx MRSA: No - Vaccination History Hx Tetanus, Diphtheria Vaccination: No Hx Influenza Vaccination: Yes Hx Pneumococcal Vaccination: Yes - Social History Hx Tobacco Use: Yes Hx Chewing Tobacco Use: No Hx Alcohol Use: No Hx Substance Use: No Hx Substance Use Treatment: No Hx Depression: No Hx Physical Abuse: No Hx Emotional Abuse: No Hx Suspected Abuse: No - Female History Patient is a Female of Child Bearing Age (10 -59 yrs old): No Patient : No Family Medical History - Family History Mother Family History: No Known Living Status: Hx Family Stroke: Yes Hx Cardiac Disease: Yes Hx Family Diabetes: Yes Hx Family Cancer: Yes - brain Physical Exam - Physical Exam General Appearance: Alert Eye Exam: bilateral normal Ears, Nose, Throat: hearing grossly normal, normal pharynx Neck: tender lateral - Primarily on the left. Posteriorly. 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 Patient is able to ambulate in without difficulty. Strength is preserved essentially in extremities. No incontinence. No new neurological changes otherwise. Skin Exam: normal color Comments: Vital Signs - 24 hr 03/01/20 23:47 Temperature 97.0 F L Pulse Rate [ 90 monitor] Respiratory 20 Rate Blood Pressure 194/114 [Left Arm] O2 Sat by Pulse 100 Oximetry Progress - Progress Progress: 03/02/20 00:13 The patient is a 74-year-old female with cervical spinal stenosis awaiting surgery apparently on the . The patient has had an exacerbation of her upper extremity radiculopathy due to the problem. She is already been dosed with Lyrica and prednisone and Fioricet today. The Demerol she was given earlier has of course worn off. She has not yet had a chance to get the Fioricet from earlier in the day filled. Given her prescription medication limitations due to allergies, the limitations of our in-house pharmacy, and her previous history of medication use the choice was made to use a 25 mcg fentanyl patch. This can be left on for up to 72 hours for pain control. Patient has been given warnings for removal of this if she becomes too drowsy or confused. She needs to contact her primary care doctor tomorrow for further pain management instructions as well as to discuss her long-term blood pressure control needs. Additionally she needs to avoid taking her Soma or Fioricet before noon tomorrow in order to avoid overmedicating with the fentanyl as the levels rise in her body. She also needs to give her surgeon a call. ER warnings given. tanna rajinder [id number] Departure - Departure Clinical Impression: Cervical radiculopathy Disposition: Discharge to Home or Self Care Condition: Fair Diet: regular diet Activity: increase activity as tolerated Referrals: BREANN QUINTANA NP [Primary Care Provider] - 1-2 Weeks Home Medications: Ambulatory Orders Albuterol Inhaler [Ventolin Hfa Inhaler] 1 puff INH PRN PRN 08/22/14 Nebivolol HCl [Bystolic] 5 mg PO BEDTIME 08/22/14 Tiotropium [place] Monohydrate [Spiriva Handihaler] 18 mcg IN BID 08/22/14 Carisoprodol [Soma] 350 mg PO QID 08/28/16 Fluticasone/Salmeterol 250/50 [Advair Diskus] 1 puff INH BID 08/28/16 Albuterol Inhaler [Ventolin Hfa Inhaler] 2 puff INH Q4HR PRN #1 inh 11/21/16 Aspirin [(None)] 325 mg PO DAILY 07/28/17 Kxyaengztniin-Tvkg-Hneynwiejc [Fioricet] 1 ea PO Q8H PRN #21 tab 03/01/20 Pregabalin [Lyrica] 75 mg PO DAILY #14 cap 03/01/20 predniSONE [Prednisone] 20 mg PO DAILY #3 tab 03/01/20 Additional Instructions: The patient is a 74-year-old female with cervical spinal stenosis awaiting surgery apparently on the . The patient has had an exacerbation of her upper extremity radiculopathy due to the problem. She is already been dosed with Lyrica and prednisone and Fioricet today. The Demerol she was given earlier has of course worn off. She has not yet had a chance to get the Fioricet from earlier in the day filled. Given her prescription medication limitations due to allergies, the limitations of our in-house pharmacy, and her previous history of medication use the choice was made to use a 25 mcg fentanyl patch. This can be left on for up to 72 hours for pain control. Patient has been given warnings for removal of this if she becomes too drowsy or confused. She needs to contact her primary care doctor tomorrow for further pain management instructions as well as to discuss her long-term blood pressure control needs. Additionally she needs to avoid taking her Soma or Fioricet before noon tomorrow in order to avoid overmedicating with the fentanyl as the levels rise in her body. She also needs to give her surgeon a call. Other instructions as previously given earlier today still apply. ER warnings given.
[2020-03-02 00:20] VITALS: BP 149/91; O2SAT 97
== END 2020-03-02 00:20 | disposition home or self-care (01) ==
LOC: ER 23:37
DX: M54.12 Radiculopathy, cervical region (principal); M48.02 Spinal stenosis, cervical region; I10 Essential (primary) hypertension; F17.200 Nicotine dependence, unspecified, uncomplicated; Z85.828 Personal history of other malignant neoplasm of skin; Z79.82 Long term (current) use of aspirin; Z86.73 Personal history of transient ischemic attack (TIA), and cerebral infarction without residual deficits; Z95.5 Presence of coronary angioplasty implant and graft

== ENCOUNTER 2020-06-04 11:13 | Observation (INO) | payer MEDICARE ==
[2020-06-04] MEDS ORDERED: SODIUM CHLORIDE 0.9% (FLUSH) 10 ML SYG IV PRN ×2 (11:18→17:53)
--- NOTE | 2020-06-04 11:19 | ED.PDOC ---
History of Present Illness - General Time Seen by Provider: 06/04/20 11:17 Source: patient - History of Present Illness Initial Comments: 74 yo female with PMH of HTN, CAD, COPD who presents with cc of chest pain and palpitations. Reports sudden onset 2 hours ago at home just after walking her dog. She reports constant pressure in the left side of her chest without radiation, currently rates 8/10 severity, worse with activity, little improvement at rest, no medications taken for relief. She additionally reports constant palpitations in her chest which began at the same time. Additionally reports mild dyspnea. States that her last [place] was 1 year ago she had a stent placed at that time. Patient continues to smoke cigarettes daily. Denies any fevers, chills, cough, abdominal pain, nausea/vomiting, leg swelling. She reports also a history of heart palpitations a couple of years ago and was treated at a hospital in [place]. Symptoms resolved with pain medications at that time. Allergies/Adverse Reactions: Allergies Codeine Allergy (Verified 03/01/20 15:57) Morphine Allergy (Verified 03/01/20 15:57) Penicillins Allergy (Verified 03/01/20 15:57) Pentazocine [From Talwin Compound] Allergy (Verified 03/01/20 15:57) Sulfa Drugs Allergy (Verified 03/01/20 15:57) Vitamin A Allergy (Verified 03/01/20 15:57) Home Medications: Ambulatory Orders Albuterol Inhaler [Ventolin Hfa Inhaler] 1 puff INH PRN PRN 08/22/14 Nebivolol HCl [Bystolic] 5 mg PO BEDTIME 08/22/14 Tiotropium [place] Monohydrate [Spiriva Handihaler] 18 mcg IN BID 08/22/14 Carisoprodol [Soma] 350 mg PO QID 08/28/16 Fluticasone/Salmeterol 250/50 [Advair Diskus] 1 puff INH BID 08/28/16 Albuterol Inhaler [Ventolin Hfa Inhaler] 2 puff INH Q4HR PRN #1 inh 11/21/16 Aspirin [(None)] 325 mg PO DAILY 07/28/17 Viuehmwlaybnc-Xybv-Ptzxkvtzut [Fioricet] 1 ea PO Q8H PRN #21 tab 03/01/20 Pregabalin [Lyrica] 75 mg PO DAILY #14 cap 07/16/20 predniSONE [Prednisone] 20 mg PO DAILY #3 tab 03/01/20 Review of Systems - Review of Systems Review of Systems: 06/04/20 11:42 as per HPI All other Systems: Reviewed and Negative Past Medical History (General) - Patient Medical History Hx Seizures: No Hx Stroke: Yes - cva right leg weakness Hx Dementia: No Hx Asthma: Yes Hx of COPD: Yes Hx Cardiac Disorders: Yes - stent Hx Congestive Heart Failure: No Hx Pacemaker: No Hx Hypertension: Yes Hx Thyroid Disease: No Hx Diabetes: No Hx Gastroesophageal Reflux: No Hx Renal Disease: No Hx Cancer: Yes - right hip, skin cancer Hx of HIV: No Hx Hepatitis C: No Hx MRSA: No - Vaccination History Hx Tetanus, Diphtheria Vaccination: No Hx Influenza Vaccination: Yes Hx Pneumococcal Vaccination: Yes - Social History Hx Tobacco Use: Yes Hx Chewing Tobacco Use: No Hx Alcohol Use: No Hx Substance Use: No Hx Substance Use Treatment: No Hx Depression: No Hx Physical Abuse: No Hx Emotional Abuse: No Hx Suspected Abuse: No - Female History Patient : No Family Medical History - Family History Mother Family History: No Known Living Status: Hx Family Stroke: Yes Hx Cardiac Disease: Yes Hx Family Diabetes: Yes Hx Family Cancer: Yes - brain Physical Exam - Physical Exam General Appearance: Alert, Anxious, No apparent distress Eye Exam: bilateral normal Ears, Nose, Throat: normal ENT inspection, normal pharynx Neck: non-tender, full range of motion, supple, normal inspection Respiratory: chest non-tender, lungs clear, normal breath sounds, no respiratory distress, no accessory muscle use Cardiovascular/Chest: normal peripheral pulses, no edema, no gallop, no JVD, no murmur, tachycardia Peripheral Pulses: radial,right: 2+, radial,left: 2+ Gastrointestinal/Abdominal: non tender, soft, no organomegaly Back Exam: normal inspection, no CVA tenderness, no vertebral tenderness Extremity: normal range of motion, non-tender, normal inspection, no pedal edema, no calf tenderness, other - To the right lower soares there is an approximately 3 x 3 cm open wound to the dermis with good granulation tissue and slight surrounding erythema Neurologic: outgoing inspector II-XII nml as tested, no motor/sensory deficits, alert, normal mood/affect, oriented x 3 Skin Exam: normal color, warm/dry Progress - Progress Progress: 06/04/20 11:43 Chest pain, palpitations -Consider ACS, arrhythmia, A. fib, SVTs, CHF, PE, COPD, musculoskeletal, anxiety, dehydration, metabolic derangement, other -Patient noted to have narrow complex regular tachycardia on initial EKG and telemetry, appears consistent with sinus tachycardia. Vitals otherwise stable -Obtain stat cardiac work-up -Nitroglycerin sublingual as neede, aspirin 324 mg p.o., 1 L normal saline bolus 06/04/20 14:10 -Patient remained stable, tachycardia now resolved. Blood pressure 100s/60s. Patient still reports 7/10 severity pressure-like chest pain. Labs reveal .02 x2 in ED. D-dimer was slightly elevated above normal so the CTA of the chest was done which revealed nonspecific groundglass opacity in the left upper lobe, possibly infectious in nature. No PE was seen. Patient does have pulmonary nodules which will need to be followed up in the outpatient setting and I discussed this with her at bedside. -COVID-19/flu/strep negative -Pt was given Lovenox 75 mg SQ -I spoke with Dr. Jiang, cardiology, at [facility] who reviewed the patient's EKGs and feels that she was actually in SVTs initially. Feels this is unlikely to be acute ischemia/ACS. Agrees to continue to monitor. Awaiting a hospital bed currently at their facility but is happy to accept the patient if they want to secure a hospital bed. Continue to monitor in our ER. 06/04/20 16:34 -No hospital beds available at [facility]. -Patient has remained stable, no further SVTs noted. Chest pain is nearly resolved. Giving another dose of Dilaudid 0.5 mg IV. -Discussed the patient with Adrian Carson who accepts for chest pain observation. Josh Gamino MD Billing #[id number] 06/04/20 11:18 Sodium Chloride 0.9% (Flush) [Saline Flush Syringe] 10 ml IV PRN PRN 06/04/20 11:30 EKG STAT 06/04/20 12:20 STREP A SCREEN CULTURE Stat 06/04/20 13:15 EKG STAT 06/05/20 09:00 Pulse Ox Daily Laboratory Results - last 24 hr 06/04/20 06/04/20 06/04/20 11:40 11:40 11:40 WBC 3.9 L RBC 3.93 L Hgb 13.6 Hct 38.3 MCV 97.4 MCH 34.7 H MCHC 35.6 RDW 14.5 Plt Count 258 MPV 8.2 Absolute Neuts (auto) 1.70 L Absolute Lymphs (auto) 1.70 Absolute Monos (auto) 0.40 Absolute Eos (auto) 0.10 Absolute Basos (auto) 0.00 Neutrophils % 43.8 Lymphocytes % 42.5 Monocytes % 9.9 H Eosinophils % 3.1 Basophils % 0.7 D-Dimer, Quantitative 763.0 H* Sodium 137 Potassium 4.2 Chloride 105 Carbon Dioxide 22 Anion Gap 14.2 BUN 15 Creatinine 0.77 BUN/Creatinine Ratio 19.5 Random Glucose 136 H Serum Osmolality 276.7 Calcium 8.7 Magnesium 1.9 Troponin I B-Natriuretic Peptide 27.2 TSH 0.80 Urine Color Urine Appearance Urine pH Ur Specific [place] Urine Protein Urine Glucose (UA) Urine Ketones Urine Blood Urine Nitrite Urine Bilirubin Urine Urobilinogen Ur Leukocyte Esterase Urine RBC Urine WBC Ur Epithelial Cells Urine Bacteria Group A Strep Rapid 06/04/20 06/04/20 06/04/20 11:40 12:20 12:50 WBC RBC Hgb Hct MCV MCH MCHC RDW Plt Count MPV Absolute Neuts (auto) Absolute Lymphs (auto) Absolute Monos (auto) Absolute Eos (auto) Absolute Basos (auto) Neutrophils % Lymphocytes % Monocytes % Eosinophils % Basophils % D-Dimer, Quantitative Sodium Potassium Chloride Carbon Dioxide Anion Gap BUN Creatinine BUN/Creatinine Ratio Random Glucose Serum Osmolality Calcium Magnesium Troponin I < 0.02 B-Natriuretic Peptide TSH Urine Color Yellow Urine Appearance Clear Urine pH 7.0 Ur Specific [place] 1.010 Urine Protein Negative Urine Glucose (UA) Negative Urine Ketones Negative Urine Blood Negative Urine Nitrite Negative Urine Bilirubin Negative Urine Urobilinogen 0.2 Ur Leukocyte Esterase Trace H Urine RBC 0 Urine WBC 0-1 Ur Epithelial Cells 0 Urine Bacteria 0 Group A Strep Rapid Negative 06/04/20 13:20 WBC RBC Hgb Hct MCV MCH MCHC RDW Plt Count MPV Absolute Neuts (auto) Absolute Lymphs (auto) Absolute Monos (auto) Absolute Eos (auto) Absolute Basos (auto) Neutrophils % Lymphocytes % Monocytes % Eosinophils % Basophils % D-Dimer, Quantitative Sodium Potassium Chloride Carbon Dioxide Anion Gap BUN Creatinine BUN/Creatinine Ratio Random Glucose Serum Osmolality Calcium Magnesium Troponin I < 0.02 B-Natriuretic Peptide TSH Urine Color Urine Appearance Urine pH Ur Specific [place] Urine Protein Urine Glucose (UA) Urine Ketones Urine Blood Urine Nitrite Urine Bilirubin Urine Urobilinogen Ur Leukocyte Esterase Urine RBC Urine WBC Ur Epithelial Cells Urine Bacteria Group A Strep Rapid - EKG/XRAY/CT EKG: Sinus, Tachy - Heart rate 130, no ST elevations noted, ST segment depressions noted in inferior and lateral leads as well as T wave inversions concerning for possible acute ischemia, axis normal, intervals normal, the ST segment changes appear new compared to 07/28/2017 EKG XRAY: chest - No acute processes per my read - Additional EKG/XRAY/Consults EKG #2: Sinus - Normal sinus rhythm, compared to initial EKG ST segment depressions and T wave inversions now resolved. Sinus tachycardia now resolved Departure - Departure Clinical Impression: SVT (supraventricular tachycardia) Chest pain Qualifiers: Chest pain type: unspecified Qualified Code(s): R07.9 - Chest pain, unspecified Time of Disposition: 16:36 Disposition: Discharge to Home or Self Care Condition: Fair Diet: low salt diet Referrals: BREANN QUINTANA NP [Primary Care Provider] - 1-2 Weeks Home Medications: Ambulatory Orders Albuterol Inhaler [Ventolin Hfa Inhaler] 1 puff INH PRN PRN 08/22/14 Nebivolol HCl [Bystolic] 5 mg PO BEDTIME 08/22/14 Tiotropium [place] Monohydrate [Spiriva Handihaler] 18 mcg IN BID 08/22/14 Carisoprodol [Soma] 350 mg PO QID 08/28/16 Fluticasone/Salmeterol 250/50 [Advair Diskus] 1 puff INH BID 08/28/16 Albuterol Inhaler [Ventolin Hfa Inhaler] 2 puff INH Q4HR PRN #1 inh 11/21/16 Aspirin [(None)] 325 mg PO DAILY 07/28/17 Doypgwpijtgcg-Hhzj-Iarkwvowcp [Fioricet] 1 ea PO Q8H PRN #21 tab 03/01/20 Pregabalin [Lyrica] 75 mg PO DAILY #14 cap 03/01/20 predniSONE [Prednisone] 20 mg PO DAILY #3 tab 03/01/20 Decision To Admit - Decistion To Admit Decision to Admit Reason: Admit from ER Decision to Admit Date: 06/04/20 Decision to Admit Time: 16:37
[2020-06-04] MEDS ORDERED: SODIUM CHLORIDE 0.9% 1000ML 1,000 ML IVS ONE (11:20)
[2020-06-04] MEDS ORDERED: NITROGLYCERIN 0.4 MG 25 EA TAB SL ONE ×2 (11:40→12:01)
[2020-06-04] MEDS ORDERED: ASPIRIN (CHEWABLE) 81 MG TAB PO ONE (11:40)
--- NOTE | 2020-06-04 12:13 | RAD ---
EXAM DESCRIPTION: Chest,1 View CLINICAL HISTORY: chest pain, palpitations COMPARISON: Chest radiograph dated July 28, 2017 TECHNIQUE: One view radiograph of the chest FINDINGS: Mild calcific atherosclerosis of the aortic arch. Cardiac silhouette shows normal heart size. Pulmonary vascularity is within normal limits. Lungs show no confluent infiltrates. Redemonstrated punctate calcified granuloma left lower lung zone. No pleural effusion. No pneumothorax. No acute osseous abnormality. IMPRESSION: No acute cardiopulmonary process. Electronically signed by: Vitaly Lin MD 06/04/2020 12:11 PM CDT
[2020-06-04] MEDS ORDERED: MORPHINE SULFATE INJ 10 MG/ML VIAL IV ONE (12:29)
--- NOTE | 2020-06-04 13:38 | CT ---
EXAM: CTA Chest INDICATION: dyspnea, chest pain, elevated d-dimer COMPARISON: None available TECHNIQUE: CT angiogram of the chest was performed according to pulmonary embolism protocol following the administration of IV contrast. Multiple axial images and multiplanar reconstructions were generated. This exam was performed according to our departmental dose-optimization program, which includes automated exposure control, adjustment of the mA and/or kV according to patient size and/or use of iterative reconstruction technique. FINDINGS: Heart: Heart size is within normal limits. No pericardial effusion. Coronary artery atherosclerosis. Great vessels: No evidence for acute pulmonary embolism. The caliber of the main pulmonary artery is within normal limits. The caliber of the aorta is within normal limits. Mild to moderate atherosclerotic plaque in the aorta. Mediastinum: No mediastinal lymphadenopathy. No mediastinal masses. Lungs: Mild emphysema. Scarring and mild subpleural cystic change in the lung apices. Incidental 7 mm part solid pulmonary nodule in the right upper lobe (axial series 5 image 77). 6 mm solid subpleural pulmonary nodule in the posterior lateral right upper lobe (axial series 5 image 71). A perifissural nodule is noted on image 93 at the major fissure 2 mm subpleural solid pulmonary nodule in posterior left lower lobe (axial series 5 image 108). A single hazy ill-defined groundglass opacity is present in the posterior left upper lobe (axial series 5 image 126 and coronal series 601 image 83). No pleural effusion. No pneumothorax. Esophagus: Unremarkable appearance of the esophagus. Thyroid: Unremarkable appearance of the visualized portions of the thyroid gland. Visualized upper abdomen: No acute abnormality is identified in the visualized portions of the upper abdomen. Bones: No acute fracture. No destructive osseous lesion. Degenerative changes in the spine. Vertebral body fusion is noted at C6-C7. Body wall: Unremarkable appearance of the visualized soft tissues of the body wall. IMPRESSION: 1. No CTA evidence for acute pulmonary embolism. 2. Multiple incidental pulmonary nodules, the largest of which is a 7 mm part solid nodule in the right upper lobe. Recommend a non-contrast Chest CT at 3-6 months to confirm persistence. If unchanged and the solid component remains < 6 mm, an annual non-contrast Chest CT should be performed for 5 years. If the solid component is 6-8 mm on follow-up, recommend biopsy or resection. If the solid component is > 8 mm on follow-up, recommend PET/CT, biopsy or resection. (Radiology. 2017 Feb; 284(1):228-243; Chest. 2012; 143(5)(Suppl):[id number]). 3. Mild emphysema. 4. A single hazy ill-defined groundglass opacity is noted in the posterior left upper lobe, likely infectious, but atypical for COVID 19 pneumonia. Electronically signed by: Magali Conklin MD 06/04/2020 1:36 PM CDT
[2020-06-04] MEDS ORDERED: HYDROmorphone HCL INJ 2 MG/ML VIAL IV ONE ×2 (13:41→16:24)
[2020-06-04] MEDS ORDERED: NITROGLYCERIN 0.2 MG/HR PATCH TD ONE (13:57)
[2020-06-04] MEDS ORDERED: ONDANSETRON INJ 4 MG/2 ML VIAL IV ONE (13:57)
[2020-06-04] MEDS ORDERED: ENOXAPARIN SODIUM 80 MG/0.8 ML SYG SUBCU ONE (14:02)
--- NOTE | 2020-06-04 17:22 | HP ---
SUPERVISING PHYSICIAN: Brian Costa MD CHIEF COMPLAINT: Palpitations. HISTORY OF PRESENT ILLNESS: This is a 74 year-old female who came in due to chest pain and palpitations. Onset was about 2 hours prior to coming to the Emergency Room which would have been around 9 AM. She had left-sided chest pressure without radiation, pain 8/10. It was worse with activity, not much improvement at rest, she came to the Emergency Room for that reason. She has had stent placement, states she takes Plavix. She also states she has had rapid heart rate before and takes Cartia for that. When she came to the Emergency Room, her workup included EKG which showed SVT. She did not receive anything in the Emergency Room for that but did get some Dilaudid for the pain which brought her pain down to about 1. She spontaneously cardioverted on her own. She had 2 negative troponins in the Emergency Room as well. On exam, the patient is alert and oriented. On exam, she has significant expiratory wheezing. She continues to smoke and has done so for 50 years or so. She takes chronic obstructive pulmonary disease medications as well. Chest x-ray did not show any acute cardiopulmonary process. CT angiogram they did because of an elevated D- dimer showed an ill-defined ground glass opacity in the left upper lobe. PAST MEDICAL HISTORY: 1. Hypertension. 2. Hyperlipidemia. 3. Chronic obstructive pulmonary disease. 4. Coronary artery disease. 5. Myocardial infarction. PAST SURGICAL HISTORY: 1, Cervical neck surgery done a month ago. 2. Back surgery. 3. Hysterectomy. 4. . 5. Appendectomy. 6. Gastric ulcer surgery. CURRENT MEDICATIONS: Please see electronic records on computer. ALLERGIES: CODEINE, MORPHINE, PENICILLIN, PENTAZOCINE, SULFA DRUGS, VITAMIN A. FAMILY HISTORY: Hypertension, heart disease, chronic obstructive pulmonary disease. SOCIAL HISTORY: She smokes half pack per day and has for over 50 years. No significant alcohol use or illegal drugs. REVIEW OF SYSTEMS: CONSTITUTIONAL: No fever, chills, no recent weight loss or gain. HEENT: Negative for headaches, vision changes, ear pain, nasal congestion, throat.pain. RESPIRATORY: Positive for shortness of breath, no cough, no hemoptysis. No pleuritic chest pain. CARDIAC: Positive for chest pain, palpitations, No peripheral edema. GI: No nausea, vomiting, diarrhea, constipation or abdominal pain. GENITOURINARY: Negative for frequency dysuria or flank pain. MUSCULOSKELETAL: No joint pain, joint swelling or muscle cramps. ENDOCRINE: No polydipsia, polyuria, polyphagia. No heat or cold intolerance. NEUROLOGICAL: Negative for seizures, syncope or paresthesias. PHYSICAL EXAMINATION: VITAL SIGNS: Blood pressure 118.76, heart rate 64, respiratory rate 16, temperature 97.6, oxygen saturation 94% on room air. GENERAL: Patient is a 74 year-old male who is in no severe distress currently but she does have some mild tachypnea. HEENT: The patient is alert. CHEST: Lungs with diffuse expiratory wheezing. CARDIOVASCULAR: Regular rate and rhythm, normal S1, S2. ABDOMEN: Soft, positive bowel sounds. GENITOURINARY: Deferred. EXTREMITIES: Upper and lower extremities with no edema. She does have a wound to the right soares, she has some mild purulent drainage. She just completed an antibiotic regimen for that. She does not know exactly what antibiotic she was on. ASSESSMENT: 1. Chest pain, rule out ACS. 2. Chronic obstructive pulmonary disease exacerbation. 3. SVT. 4. Hypertension. 5. RLE wound PLAN: The patient is being admitted for chest pain rule out. Additionally, place on some medication for chronic obstructive pulmonary disease exacerbation. Given her tachycardia, I will utilize Xopenex at this time. Gave her a light dose of corticosteroids with Solu-Medrol. Placed her on Lovenox for DVT prophylaxis. I will resume her home medications once they are verified in the computer. I am also going to put her on proton pump inhibitor. Start her cardiac diet as well. I will try to find out what antibiotic she was taking for her leg. It's still draining, so will need to use a different antibiotic. #[id number] [facility]
[2020-06-04] MEDS ORDERED: NITROGLYCERIN 0.4 MG 25 EA TAB SL PRN (17:53)
[2020-06-04] MEDS ORDERED: KETOROLAC TROMETHAMINE INJ 30 MG/ML VIAL IV ONE (17:59)
[2020-06-04] MEDS ORDERED: IV SET AND CAP CHANGE INJ INJ SCH (18:00)
[2020-06-04] MEDS ORDERED: ENOXAPARIN SODIUM 40 MG/0.4 ML SYG SUBCU SCH (18:00)
[2020-06-04] MEDS: LEVALBUTEROL NEBS 0.63 MG/3 ML VIAL NEB SCH (19:02)
[2020-06-04] MEDS ORDERED: ONDANSETRON INJ 4 MG/2 ML VIAL IV PRN (20:41)
[2020-06-04] MEDS: SODIUM CHLORIDE 0.9% (FLUSH) 10 ML SYG IV SCH (20:58)
[2020-06-04] MEDS: methylPREDNISolone SODIUM SUC 40 MG/ML VIAL IV SCH (20:58)
[2020-06-04] MEDS ORDERED: ACETAMINOPHEN-CAFF-BUTALBITAL 1 EA TAB PO PRN (21:56)
[2020-06-05] MEDS: LEVALBUTEROL NEBS 0.63 MG/3 ML VIAL NEB SCH ×2 (01:30→08:50)
[2020-06-05] MEDS ORDERED: CARISOPRODOL 350 MG PO PRN (01:36)
[2020-06-05] MEDS: ACETAMINOPHEN 325 MG TAB PO PRN ×2 (01:40→09:23)
[2020-06-05] MEDS ORDERED: KETOROLAC TROMETHAMINE INJ 30 MG/ML VIAL IV ONE (06:09)
[2020-06-05] MEDS ORDERED: PANTOPRAZOLE SODIUM TAB 40 MG PO SCH (06:30)
[2020-06-05] MEDS ORDERED: cefTAZidime 2 GM in SODIUM CHLORIDE 0.9% 100ML 100 ML IVPB SCH (08:00)
[2020-06-05] MEDS ORDERED: CLOPIDOGREL 75 MG TAB PO SCH (09:00)
[2020-06-05] MEDS ORDERED: FLUTICASONE/SALMETEROL 250/50 14 PUFF/17 GM INH INH SCH (09:00)
[2020-06-05] MEDS ORDERED: CARISOPRODOL 350 MG PO SCH (09:00)
[2020-06-05] MEDS ORDERED: ASPIRIN TABLET 325 MG TAB PO SCH (09:00)
[2020-06-05] MEDS ORDERED: SODIUM CHLORIDE 0.9% 100ML 0 ML IVPB ONE (09:06)
[2020-06-05] MEDS: methylPREDNISolone SODIUM SUC 40 MG/ML VIAL IV SCH (09:10)
[2020-06-05] MEDS: SODIUM CHLORIDE 0.9% (FLUSH) 10 ML SYG IV SCH (09:11)
[2020-06-05] MEDS ORDERED: ACETAMINOPHEN 325 MG TAB ONE (09:21)
[2020-06-05] MEDS ORDERED: CHLORHEXIDINE GLUCONATE 4 % 15 ML UD TOP ONE (09:53)
[2020-06-05] MEDS ORDERED: SODIUM CHLORIDE 0.9% 100ML 100 ML IVPB ONE (09:56)
[2020-06-05 10:18] VITALS: O2SAT 94
--- NOTE | 2020-06-05 12:34 | PCM.PROG ---
PCM Subjective - Review of Systems Events since last encounter: Patient denies chest pain or shortness of breath. She denies any complaints. She does have concern of the right leg wound, and wanted to know if a field artillery operations specialist could take a look at it. General: Denies: Chills, Fatigue HEENT: Denies: Head Aches, Sore Throat Pulmonary: Denies: Dyspnea, Cough, Pleuritic Chest Pain Cardiovascular: Denies: Chest Pain, Palpitations, Edema Gastrointestinal: Denies: Nausea, Vomiting, Abdominal Pain Genitourinary: Denies: Dysuria, Frequency Objective - Exam Vitals and I&O: Vital Signs Temp 98.7 F 06/05/20 10:17 Pulse 71 06/05/20 10:17 Resp 17 06/05/20 10:17 BP 129/68 06/05/20 10:17 Pulse Ox 94 L 06/05/20 10:17 Intake & Output 06/04/20 06/05/20 06/05/20 18:59 06:59 18:59 Intake Total 580 250 Balance 580 250 Weight 176 lb 9.6 oz 176 lb 9.6 oz Intake: Oral 580 250 Other: # Voids 2 1 Weight Measurement Method Built in [facility] General: Alert, Oriented x3 HEENT: Atraumatic, PERRLA Neck: Supple Lungs: Other - Still with expiratory wheezing Cardiovascular: Regular rate, Normal S1, Normal S2 Abdomen: Normal bowel sounds, Soft Extremities: Other - RLE wound covered with dressing. No surrounding cellulitis Neurological: Normal gait, Normal speech Psych/Mental Status: Mental status NL - Results Results: Laboratory Results WBC 3.9 K/mm3 (4.8-10.8) L 06/04/20 11:40 RBC 3.93 M/mm3 (4.20-5.40) L 06/04/20 11:40 Hgb 13.6 gm/dL (12.0-16.0) 06/04/20 11:40 Hct 38.3 % (36.0-47.0) 06/04/20 11:40 MCV 97.4 fl (81.0-99.0) 06/04/20 11:40 MCH 34.7 pg (27.0-31.0) H 06/04/20 11:40 MCHC 35.6 g/dL (33.0-37.0) 06/04/20 11:40 RDW 14.5 % (11.5-14.5) 06/04/20 11:40 Plt Count 258 K/mm3 (130-400) 06/04/20 11:40 MPV 8.2 fl (7.40-10.4) 06/04/20 11:40 Absolute Neuts (auto) 1.70 K/uL (1.8-6.8) L 06/04/20 11:40 Absolute Lymphs (auto) 1.70 K/uL (1.0-3.4) 06/04/20 11:40 Absolute Monos (auto) 0.40 K/uL (0.2-0.8) 06/04/20 11:40 Absolute Eos (auto) 0.10 K/uL (0.0-0.4) 06/04/20 11:40 Absolute Basos (auto) 0.00 K/uL (0.0-0.1) 06/04/20 11:40 Neutrophils % 43.8 % (42.0-78.0) 06/04/20 11:40 Lymphocytes % 42.5 % (20.0-50.0) 06/04/20 11:40 Monocytes % 9.9 % (2.0-9.0) H 06/04/20 11:40 Eosinophils % 3.1 % (1.0-5.0) 06/04/20 11:40 Basophils % 0.7 % (0.0-2.0) 06/04/20 11:40 D-Dimer, Quantitative 763.0 ng/ml (131-400) H* 06/04/20 11:40 Sodium 137 mmol/L (135-145) 06/04/20 11:40 Potassium 4.2 mmol/L (3.6-5.0) 06/04/20 11:40 Chloride 105 mmol/L (101-111) 06/04/20 11:40 Carbon Dioxide 22 mmol/L (21-31) 06/04/20 11:40 Anion Gap 14.2 (12-18) 06/04/20 11:40 BUN 15 mg/dL (7-18) 06/04/20 11:40 Creatinine 0.77 mg/dL (0.6-1.3) 06/04/20 11:40 BUN/Creatinine Ratio 19.5 (10-) 06/04/20 11:40 Random Glucose 136 mg/dL (70-105) H 06/04/20 11:40 Serum Osmolality 276.7 mOsm/L (275-295) 06/04/20 11:40 Calcium 8.7 mg/dL (8.4-10.2) 06/04/20 11:40 Magnesium 1.9 mg/dL (1.8-2.5) 06/04/20 11:40 Creatine Kinase 57 IU/L (26-140) 06/05/20 01:18 CK-MB (CK-2) 1.8 ng/mL (0.0-4.4) 06/05/20 01:18 CK-MB (CK-2) % Not Reportable 06/05/20 01:18 Troponin I < 0.02 ng/mL (0.01-0.05) 06/05/20 01:18 B-Natriuretic Peptide 27.2 pg/ml (0-100) 06/04/20 11:40 Triglycerides 175 mg/dL (35-160) H 06/05/20 05:25 Cholesterol 189 mg/dL (100-200) 06/05/20 05:25 Cholesterol Risk Factr 5.3 (4.0-6.7) 06/05/20 05:25 LDL Cholesterol Direct 125.0 mg/dL (1.0-130.0) 06/05/20 05:25 HDL Cholesterol 36 mg/dL (29-89) 06/05/20 05:25 TSH 0.80 uIU/mL (0.34-5.60) 06/04/20 11:40 Urine Color Yellow (Yellow) 06/04/20 12:50 Urine Appearance Clear (Clear) 06/04/20 12:50 Urine pH 7.0 (4.5-7.8) 06/04/20 12:50 Ur Specific [place] 1.010 (1.005-1.030) 06/04/20 12:50 Urine Protein Negative mg/dL 06/04/20 12:50 Urine Glucose (UA) Negative mg/dL (Negative) 06/04/20 12:50 Urine Ketones Negative mg/dL (NEGATIVE) 06/04/20 12:50 Urine Blood Negative (Negative) 06/04/20 12:50 Urine Nitrite Negative 06/04/20 12:50 Urine Bilirubin Negative (NEGATIVE) 06/04/20 12:50 Urine Urobilinogen 0.2 mg/dL (0.2-1.0) 06/04/20 12:50 Ur Leukocyte Esterase Trace (Negative) H 06/04/20 12:50 Urine RBC 0 /hpf 06/04/20 12:50 Urine WBC 0-1 /hpf 06/04/20 12:50 Ur Epithelial Cells 0 /hpf 06/04/20 12:50 Urine Bacteria 0 06/04/20 12:50 Group A Strep Rapid Negative (NEGATIVE) 06/04/20 12:20 Assessment/Plan - Problem(s) (1) Chest pain Qualifiers: Chest pain type: unspecified Qualified Code(s): R07.9 - Chest pain, unspecified Plan: ACS ruled out. Continue current medication. (2) SVT (supraventricular tachycardia) Plan: No further episodes. I suspect it may have happened due to SOB from COPD exacerbation. Will continue to monitor and continue current medications. (3) COPD exacerbation Plan: Will continue steroids and Xopenex nebs. Anticipate prescription for PO steroids and Xopenex inhaler at discharge. (4) Hypertension Plan: Currently controlled. Will continue current medications. (5) RLE wound Plan: Given the culture/sensitivity from her PCP, I will start cephalosporin. Anticipate discharge with this as well. I did speak with Dr. Patel, who is not front end architect today, who instructed to wash the wound 3 times per day and stop smoking. I subsequently instructed the patient. Additionally, she was under the impression the wound would have to be closed to heal. However, given the length of time and infection, this is not advisable. Will have to heal by secondary intention.
[2020-06-05 14:13] VITALS: BP 117/74; TEMP 98.3
--- NOTE | 2020-06-05 14:32 | DS ---
SUPERVISING PHYSICIAN: Brian Costa MD ADMISSION DIAGNOSIS: 1. Chest pain, rule out acute coronary syndrome. 2. Chronic obstructive pulmonary disease exacerbation. 3. Supraventricular tachycardia. 4. Hypertension. 5. Right lower extremity wound. DISCHARGE DIAGNOSIS: 1. Chest pain, rule out acute coronary syndrome. 2. Chronic obstructive pulmonary disease exacerbation. 3. Supraventricular tachycardia. 4. Hypertension. 5. Right lower extremity wound. HOSPITAL COURSE: This is a 74-year-old female who came to the hospital with chest pain with palpitations which started about 2 hours prior to arrival to the Emergency Room. She had some left sided chest pressure, but no radiation. In the ER, she was not really given any medicines to slow the heart rate down, it spontaneously resolved on its own. However, on admission, she was found to be extremely wheezy and a little bit dyspneic. It was felt she was into a chronic obstructive pulmonary disease exacerbation, so she was admitted for chest pain rule out and for chronic obstructive pulmonary disease exacerbation. She was placed on Solu-Medrol as well as Xopenex breathing treatments due to the previous supraventricular tachycardia. Additionally, she came with a preexisting lower extremity wound which she was on clindamycin for as an outpatient. However, the cultures that resulted did not show clindamycin as an antibiotic and there was multiple drug resistance to that bacteria. Therefore, she was placed on ceftazidime. All her troponins were negative. EKG did not show any acute changes. She denies any chest pressure or shortness of breath. She still has some wheezing. I was going to actually keep her throughout the day to continue the IV steroids and breathing treatments, but she requested to go home. She had concern that there were COVID patients in the hospital although they are nowhere near her room. Nonetheless, I will discharge her in stable condition today. I have ordered cefpodoxime to be taken p.o. for the next 14 days in addition to titrating dose of steroids. I have also ordered a Xopenex HFA to be taken 4 times a day for now. She can followup with her primary care physician in 1 to 2 weeks. Diet is as tolerated. Activity is as tolerated. #[id number] [facility]
[2020-06-05] MEDS ORDERED: CHLORHEXIDINE GLUCONATE 4 % 15 ML UD TOP SCH (15:00)
[2020-06-05] MEDS ORDERED: NEBIVOLOL 2.5 MG TAB PO SCH (21:00)
== END 2020-06-05 15:19 | disposition home or self-care (01) ==
LOC: ER 11:13 → MS 17:20
PROVIDERS: ADMIT Nurse Practitioner; ATTEND Nurse Practitioner
DX: J44.1 Chronic obstructive pulmonary disease with (acute) exacerbation (principal); R07.89 Other chest pain; I47.1 Supraventricular tachycardia; I10 Essential (primary) hypertension; S81.801A Unspecified open wound, right lower leg, initial encounter; I25.10 Atherosclerotic heart disease of native coronary artery without angina pectoris; I25.2 Old myocardial infarction; F17.210 Nicotine dependence, cigarettes, uncomplicated; E78.5 Hyperlipidemia, unspecified; I69.351 Hemiplegia and hemiparesis following cerebral infarction affecting right dominant side; R91.8 Other nonspecific abnormal finding of lung field; Z20.828 Contact with and (suspected) exposure to other viral communicable diseases; Z79.02 Long term (current) use of antithrombotics/antiplatelets; Z79.51 Long term (current) use of inhaled steroids; Z79.82 Long term (current) use of aspirin; Z79.899 Other long term (current) drug therapy; Z95.5 Presence of coronary angioplasty implant and graft; Z82.49 Family history of ischemic heart disease and other diseases of the circulatory system; Z85.828 Personal history of other malignant neoplasm of skin; Z88.0 Allergy status to penicillin; Z88.2 Allergy status to sulfonamides; Z88.6 Allergy status to analgesic agent; Z88.8 Allergy status to other drugs, medicaments and biological substances; X58.XXXA Exposure to other specified factors, initial encounter
CPT/HCPCS: 96374; 96375 ×2; 96376 ×2; 96372; J1170 ×2; J1885 ×2; J1030 ×2; J2270; J2405; J7030; J7614 ×2; A4216 ×2; J1650; J7050; 85379; 80048; 82553 ×2; 87880; 80061; 36415 ×4; 81001; 85025; 82550 ×2; 83735; 87070; 84443; 84484 ×4; 83880; 71045; 71275; 94640 ×2; 94760 ×2; 94664; 99285; 93005 ×4; G0378; 87502; 87635

== ENCOUNTER → 2020-06-19 | Outpatient (CLI) | payer MEDICARE ==
--- NOTE | 2020-06-20 11:47 | RAD ---
EXAM: Chest,2 Views INDICATION: 74 years Female, PNEUMONIA COMPARISON: Single view of the chest 06/04/2020, CTA chest 06/04/2020 FINDINGS: Two views of the chest were performed. Heart size is within normal limits. Calcified granuloma in the left lower lobe. Additional known subcentimeter pulmonary nodules seen on recent CT angiogram are not well visualized radiographically. CT follow-up is still recommended as discussed on the CT angiogram report. No new pulmonary infiltrate is identified. No pleural effusion. No pneumothorax. The osseous structures are intact. Unremarkable appearance of the visualized upper abdomen. IMPRESSION: 1. No pulmonary infiltrate is identified to suggest pneumonia. 2. Subcentimeter pulmonary nodules seen on recent CT angiogram are not well visualized radiographically. CT follow-up is still recommended as per the prior report. Calcified is also noted in the left Electronically signed by: Magali Conklin MD 06/20/2020 11:45 AM [facility]ER
== END ==
LOC: RAD 13:09
PROVIDERS: ATTEND Nurse Practitioner Family
DX: J18.9 Pneumonia, unspecified organism (principal); R91.8 Other nonspecific abnormal finding of lung field

== ENCOUNTER → 2020-06-29 | Outpatient (CLI) | payer MEDICARE ==
--- NOTE | 2020-07-01 13:42 | US ---
EXAM DESCRIPTION: Extremity,Lower [place] Arteries: Ultrasound. CLINICAL HISTORY: ATHEROSCLEROSIS COMPARISON: None. TECHNIQUE: Doppler evaluation of the bilateral lower extremity arterial flow waveforms and velocities. FINDINGS: Arterial waveforms in the right lower extremity are multiphasic from the right common femoral artery through the right dorsalis pedis artery. Arterial waveforms in the left lower extremity are multiphasic liver, femoral artery through the left posterior tibial artery. Monophasic in the dorsalis pedis artery.. Comments: Velocities are relatively symmetric bilaterally except for elevation of the distal right superficial femoral artery. Symmetric velocity in the bilateral dorsalis pedis arteries. IMPRESSION: Doppler ultrasound of the bilateral lower extremity arterial system shows possible early atherosclerotic occlusive disease in the left anterior tibial artery or dorsalis pedis artery. Elevated velocity in the distal right superficial femoral artery could be due to narrowing of the vessel but no stenosis.. Electronically signed by: Semaj Barber MD 07/01/2020 1:40 PM [employer] [employer]
== END ==
LOC: US 06-27 15:43
PROVIDERS: ATTEND Nurse Practitioner Family
DX: I70.203 Unspecified atherosclerosis of native arteries of extremities, bilateral legs (principal); I77.89 Other specified disorders of arteries and arterioles

== ENCOUNTER → 2020-07-02 | Outpatient (CLI) | payer MEDICARE | LOC: YCFC.O 14:09 | PROVIDERS: ATTEND Nurse Practitioner | DX: Z20.828 Contact with and (suspected) exposure to other viral communicable diseases (principal) ==